=== PATIENT | female | born 1940 | race Caucasian/White ===

== ENCOUNTER 2018-03-10 07:31 | Day surgery (SDC) | payer OTHER ==
[2018-03-10] MEDS ORDERED: PROPOFOL 20 ML (08:40)
[2018-03-10] MEDS ORDERED: LIDOCAINE 2% (SDV) 5 ML INJ (08:40)
[2018-03-10] MEDS ORDERED: MIDAZOLAM 1 MG/ML 2 ML INJ (08:40)
== END 2018-03-10 15:37 | disposition home or self-care (01) ==
LOC: GIL 07:31
DX: Z12.11 Encounter for screening for malignant neoplasm of colon (principal); K29.70 Gastritis, unspecified, without bleeding; D12.2 Benign neoplasm of ascending colon; D12.7 Benign neoplasm of rectosigmoid junction
CPT/HCPCS: 43239; 88305; 88312